=== PATIENT | female | born 1955 | race Caucasian/White ===

== ENCOUNTER → 2016-06-11 | Outpatient (CLI) | payer OTHER | LOC: RAD 01:09 | DX: Z12.31 Encounter for screening mammogram for malignant neoplasm of breast (principal) ==

== ENCOUNTER → 2017-06-14 | Outpatient (CLI) | payer OTHER | LOC: RAD 01:06 | DX: Z12.31 Encounter for screening mammogram for malignant neoplasm of breast (principal) ==

== ENCOUNTER → 2018-06-24 | Outpatient (CLI) | payer OTHER | LOC: RAD 10:12 | DX: Z12.31 Encounter for screening mammogram for malignant neoplasm of breast (principal) ==

== ENCOUNTER → 2018-07-21 | Outpatient (CLI) | payer OTHER ==
--- NOTE | 2018-07-22 16:06 | PATH ---
[facility] [address] [place] [address] PATHOLOGY RPT PROCEDURE Name: NIECY ANDREWS Room #: REG [facility].#: [id number] ������������������ Admission: 07/21/18 ������������������ Date of : 57 Discharge: Report #: [id number] Path Case #: [id number] Note [facility] Accession Number: [id number] TESTS RESULT FLAG UNITS REF RANGE LAB Clinician Provided Cytology Information No. of containers..01 Other (Miscellaneous) Source: LT THYROID DIAGNOSIS: 02 LEFT THYROID, FINE NEEDLE ASPIRATION NEGATIVE FOR MALIGNANT CELLS. BETHESDA CATEGORY II. SPECIMEN CONSISTS OF GROUPS OF FOLLICULAR CELLS, HEMOSIDERIN-LADEN MACROPHAGES, COLLOID, AND BLOOD. THIS PATTERN IS COMPATIBLE WITH A COLLOID NODULE. THIS INTERPRETATION INCLUDES EVALUATION OF A CELL BLOCK. NEGATIVE FOR NUCLEAR FEATURES OF PAPILLARY THYROID CARCINOMA. Comment: Please note sample may not be entirely access service representative. Correlate clinically and follow-up as indicated. Pathologist ICD10: 02 E04.1 Signed out by: Ayanna Posadas MD, Pathologist NPI- [id number] Performed by: Angelo Urbina, Bioinformaticist ([facility]) Gross description: 01 25ML, RED, CLEAR /LCS FLAG LEGEND: L-Low Normal,H-High Normal,LL-Alert Low,HH-Alert High <-Panic Low,>-Panic High,A-Abnormal,AA-Critical Abnormal Performed at: 01 [facility] [address] [place] [address] Bay Shankar MD, [address] [address] Ayanna Posadas MD, Specimen Comment: A courtesy copy of this report has been sent to Specimen Comment: [phone], . Specimen Comment: Report sent to DR CULP / DR DEMARCO Performed at: [address] [address] PATHOLOGY RPT PROCEDURE Name: NIECY ANDREWS Room #: REG SKIP [place]#: [id number] ������������������ Admission: 07/21/18 ������������������ Date of : 57 Discharge: Report #: [id number] Path Case #: [id number] [facility] [address], [place], [place] [id number] MD Bay Shankar MD Phone: [phone]
== END | disposition home or self-care (01) ==
LOC: SPEC 08:12
DX: E04.1 Nontoxic single thyroid nodule (principal)

== ENCOUNTER → 2019-09-21 | Outpatient (CLI) | payer OTHER | LOC: RAD 09:50 | PROVIDERS: ATTEND Obstetrics & Gynecology | DX: Z12.31 Encounter for screening mammogram for malignant neoplasm of breast (principal) ==

== ENCOUNTER → 2020-09-27 | Outpatient (CLI) | payer OTHER | LOC: BC 10:47 | PROVIDERS: ATTEND Obstetrics & Gynecology | DX: Z12.31 Encounter for screening mammogram for malignant neoplasm of breast (principal) ==